=== PATIENT | male | born 1980 | race Caucasian/White ===

== ENCOUNTER 2017-10-27 04:20 | Emergency (ER) | payer SELFPAY ==
[2017-10-27] MEDS ORDERED: ALBUTEROL INH PREPACK MDI TAKEHOME ONE (04:25)
--- NOTE | 2017-10-27 04:25 | EDPHY ---
H & P Time Seen by Provider: 10/27/17 04:24 HPI/ROS: HPI CHIEF COMPLAINT: Cough HISTORY OF PRESENT ILLNESS: 37-year-old male, homeless, history of tobacco use , presents emergency room with a cough times 12 hr with sometimes productive yellow sputum. No fever. Denies shortness of breath, denies chest pain, denies pleuritic pain. Patient is homeless he [place] [address] [place]. Past Medical History: Denies medical history Past Surgical History: Pre denies surgical history Social History: Smokes tobacco daily 1 pack per day. Homeless, denies drugs or alcohol. Family History: Noncontributory ROS REVIEW OF SYSTEMS: 10 Systems were reviewed and negative with the exception of the elements mentioned in the history of present illness. Exam Constitutional vital signs stable, nontoxic appearing triage nursing summary reviewed, vital signs reviewed, awake/alert. Noted to be not hypoxic Eyes normal conjunctivae and sclera, EOMI, PERRLA. HENT normal inspection, atraumatic, moist mucus membranes, no epistaxis, neck supple/ no meningismus, no raccoon eyes. Respiratory clear to auscultation bilaterally, normal breath sounds, no respiratory distress, no wheezing. Cardiovascular rate normal, regular rhythm, no murmur, no edema, distal pulses normal. Gastrointestinal soft, non-tender, no rebound, no guarding, normal bowel sounds, no distension, no pulsatile mass. Genitourinary no CVA tenderness. Musculoskeletal no midline vertebral tenderness, full range of motion, no calf swelling, no tenderness of extremities, no meningismus, good pulses, neurovascularly intact. Skin pink, warm, & dry, no rash, skin atraumatic. Neurologic awake, alert and oriented x 3, AAOx3, moves all 4 extremities equally, motor intact, sensory intact, CN II-XII intact, normal cerebellar, normal vision, normal speech. Psychiatric normal mood/affect. Heme/Lymph/Immune no lymphadenopathy. Differential Diagnosis: Includes but is not limited to in a particular order bronchitis, reactive airway disease, viral pneumonia, bacterial pneumonia Medical Decision Making: Here in the Emergency room the patient is in no distress. Stable vital signs no hypoxia. Does not have increased labored breathing or work of breathing. Re-evaluation: Plan for this patient one-view chest x-ray. ED x-ray chest one view reviewed. Negative for acute cardiopulmonary disease specifically no pneumonia. Recommend patient refrain from smoking as this most likely cause exacerbation of cough. [id number]: I did go re-evaluate the patient resting comfortably no acute distress. Clear lung sounds bilaterally. Pulse ox 98% on room air. In fact he is sleeping. Source: Patient, EMS Constitutional: Initial Vital Signs Temperature (C) 36.7 C 10/27/17 04:24 Heart Rate 82 10/27/17 04:24 Respiratory Rate 20 10/27/17 04:24 Blood Pressure 161/108 H 10/27/17 04:24 O2 Sat (%) 96 10/27/17 04:24 O2 Delivery Mode Room Air Allergies/Adverse Reactions: No Known Allergies Allergy (Unverified 10/27/17 04:23) Home Medications: Medication Instructions Recorded NK [No Known Home Meds] 10/27/17 Departure - Departure Disposition: Home, Routine, Self-Care Clinical Impression: Cough Instructions: Acute Cough (ED) Additional Instructions: 1. Mode refrain from smoking tobacco. Referrals: Patient,NotPresent [Unknown] - As per Instructions
[2017-10-27 04:56] VITALS: BP 126/75
== END 2017-10-27 04:55 | disposition home or self-care (01) ==
DX: R05 Cough (principal); F17.200 Nicotine dependence, unspecified, uncomplicated; Z59.0 Homelessness